=== PATIENT | male | born 1995 | race Two or more races ===

== ENCOUNTER 2024-01-26 22:47 | Emergency (ER) | payer BC, SELFPAY ==
[2024-01-26 22:48] VITALS: BP 147/100
--- NOTE | 2024-01-27 00:41 | ED.GENMED ---
History of Present Illness
<LILO Kenyon (Lenka) - Last Filed: 01/27/24 01:02>
General
Chief Complaint: Allergic Reaction
Source: patient
Exam Limitations: none
Time Seen by Provider: 01/27/24 00:26
Nursing documentation reviewed up to this point in time: agreed with
History of Present Illness
History of Present Illness:
Pt is a 28 yo male with no PMHx who presents to the ED with concerns over R neck swelling x 1d after being stung by a bee x 1.5 days ago. (01/24) around 1700 pt's brother was mowing the lawn and ran over a bees nest, pt was nearby and got
stung on the central margin of his R upper eyelid and his R lateral wrist. He reports immediate itching and swelling to both areas. He took no medication, only applied ice intermittently with temporary relief. He presents with mild periorbital edema
and erythema, worse on the upper eyelid. The puncture is visible. Pt denies having to take any stingers out. No pain with eye movement, no changes in vision. Monday (01/25) morning he awoke with R neck swelling. The swelling has not worsened or
improved. He notes sensation of 'neck tightness', but denies difficulty breathing, shortness of breath, difficulty swallowing, chest tightness, or pain with movement. He took Benadryl at 1600 this afternoon (01/25) with no relief.
He has been stung by bees before, has never had a reaction like this.
[employer], NKFA, NKDA. No history of anaphylaxis.
Does not take any daily medications.
Past History
<LILO Kenyon (Lenka) - Last Filed: 01/27/24 01:02>
Past History
ED Past Medical History: None
ED Past Surgical History: None
Social History
Tobacco: Non-smoker
Alcohol: None
Phy Exam
<LILO Kenyon (Lenka) - Last Filed: 01/27/24 01:02>
General Physical Exam
General Presentation: well appearing and no apparent distress (pt resting comfortably in bed, no respiratory distress)
General age: appears stated age
General Skin: warm and dry
General Habitus: normal
General Mental: alert
General Hydration: appears well hydrated
ENT Exam
ENT Exam: EOMI, pharynx normal, neck supple, lymphnodes (non-palpable, non-tender) and swallowing well
Eye Exam
Eye Exam: PERRL, EOMI (no pain with EOM) and other (R conjunctiva injected, primarily in upper outer and lower outer quadrant of eye)
Eyelid Exam: red and inflamed: Right
Pulmonary Exam
Pulmonary Exam: no respiratory distress, chest non tender, no rhonchi and no cough
Neurological Exam
Neurological Exam: alert, oriented x3 and speech normal
Skin Exam
Skin Exam: erythema (upper R eyelid, minimal)
Course
<LILO Kenyon (Lenka) - Last Filed: 01/27/24 01:02>
Orders/Labs/Results
Orders:
Orders
01/27/24 01:08
Prednisone [Deltasone] 50 mg PO NOW STA
01/27/24 01:08
Mometasone [Elocon 0.1% Cream] See Dose Instructions TOPICAL NOW STA
Vital Signs
Initial and Last Documented VS:
Initial Vital Signs
Temp Pulse Resp BP Pulse Ox
98.3 F 88 18 147/100 98
01/26/24 22:48 01/26/24 22:48 01/26/24 22:48 01/26/24 22:48 01/26/24 22:48
Last Documented Vital Signs
Temp Pulse Resp BP Pulse Ox
98.3 F 88 18 147/100 98
01/26/24 22:48 01/26/24 22:48 01/26/24 22:48 01/26/24 22:48 01/26/24 22:48
<Agueda Clark DO - Last Filed: 01/27/24 01:24>
Orders/Labs/Results
Orders:
Orders
01/27/24 01:08
Prednisone [Deltasone] 50 mg PO NOW STA
01/27/24 01:08
Mometasone [Elocon 0.1% Cream] See Dose Instructions TOPICAL NOW STA
Vital Signs
Initial and Last Documented VS:
Initial Vital Signs
Temp Pulse Resp BP Pulse Ox
98.3 F 88 18 147/100 98
01/26/24 22:48 01/26/24 22:48 01/26/24 22:48 01/26/24 22:48 01/26/24 22:48
Last Documented Vital Signs
Temp Pulse Resp BP Pulse Ox
98.3 F 88 18 147/100 98
01/26/24 22:48 01/26/24 22:48 01/26/24 22:48 01/26/24 22:48 01/26/24 22:48
<LILO Kenyon (Lenka) - Last Filed: 01/27/24 01:02>
MDM/Problems Addressed
Differential Diagnosis Includes:
DDx: local reaction from bee venom vs preseptal cellulitis vs anaphylaxis
Pt resting comfortable in bed, no respiratory distress. Mild erythema and edema noted to R eyelid with some conjunctival injection. Without pain with EOM, and EOM intact. No pain with neck movement, no obvious edema to R lateral neck. Likely a
local reaction from bee venom. Will treat with antihistamines
<LILO Kenyon (Lenka) - Last Filed: 01/27/24 01:02>
*Critical Care Note
Total Time (30-74mins, 75-104mins- exclusive of procedures): Not Applicable
<Agueda Clark DO - Last Filed: 01/27/24 01:24>
*Pulse Oximetry
Patient hypoxic: no
ED Attending Note
<Marialuisa Ferrari (Lenka)ST [email or web address] - Last Filed: 01/27/24 01:02>
-
Portions of this chart may have been created with voice recognition software.� Occasional wrong word or��sound alike� substitutions may have occurred due to the inherent limitations of voice recognition software.
<Agueda Clark DO - Last Filed: 01/27/24 01:24>
ED Attending Note
Patient seen and examined by attending physician: Yes
I performed the substantive portion of visit, reviewed & personally made and approve the management plan that is documented in note by myself or MAL.: Yes
ED Attending Note:
This is a 28-year-old gentleman with no significant past medical history who was stung by a bee 1 and half days ago to his right dorsal lateral wrist as well as right upper eyelid. He admits to mild to moderate local swelling of his right upper
eyelid and right dorsal wrist with mild local itch but no generalized itching nor hives nor generalized rash, no sore throat nor swelling no difficulty swallowing. Earlier today he noticed some focal pain right lateral neck at the angle of his jaw
and his girlfriend was concerned for potential allergic reaction. He denies dental pain/no pain with chewing. No fever no chills.
He took Benadryl 50 mg around 4 PM without improvement. He has had no vision difficulty, no eye pain, no tearing. No headache. No fever nor chills.
He takes no medicines on a daily basis.
GENERAL: 28-year-old overweight male appears his stated age, bright and alert, pleasant, appears in no acute distress.
EYE: There is mild swelling of right upper eyelid with very minimal focal erythema but no periorbital erythema nor edema. Conjunctiva and sclera are clear. Extraocular muscles intact. There is no facial tenderness nor facial soft tissue swelling
nor erythema. Pupils equal and reactive. anicteric
NECK: Supple, no soft tissue swelling nor erythema nor rash, no meningismus. There is mild focal tenderness right parotid gland without appreciable swelling/inflammation of the parotid gland. Palpation in this area exactly reproduces patient's
pain complaint. There is no tenderness to the mandible, no TMJ tenderness and full mandible range of motion without difficulty nor pain. There is no dental tenderness. No evidence of dental caries nor gingival erythema.
ENT: posterior pharynx is clear, oral mucosa is moist. TM clear b/l, nares patent.
CARDIAC: Regular rate and rhythm. no murmur.
LUNGS: Clear breath sounds bilaterally, no acute respiratory distress, no wheezes/rales/rhonchi
ABDOMEN: Soft, nondistended, without focal tenderness
NEUROLOGICAL: Alert and oriented x3, no focal neuro deficits. Gait is correa and steady.
SKIN: Warm and dry, normal color, skin intact. There is mild focal soft tissue swelling with minimal erythema right proximal dorsal lateral wrist. Full range of motion of wrist. No palpable heat, no lymphangitis.
MUSCULOSKELETAL: No C/C/E. peripheral pulses are full and equal b/l. No joint tenderness.
PSYCH: Normal and appropriate interaction.
Patient presents with local reaction to hymenoptera sting to the right upper eyelid, right dorsal lateral wrist.
Admits that swelling has improved but has not resolved.
He is noted to have mild tenderness at the right parotid gland but no appreciable parotid inflammation/swelling. I suspect an element of reactive adenitis but as patient is afebrile, no significant parotid swelling, no erythema, nothing to suggest
infectious process. Nothing to suggest a dental infection.
Nothing in history nor exam to suggest allergic reaction.
Will treat local bee sting inflammation with a short course of prednisone. Recommend continuing Benadryl for as needed itch and will add a short course of topical steroid cream.
Discharge Plan
Departure
Patient Disposition: Home (Routine Discharge)
Date of Disposition: 01/27/24
Time of Disposition: 01:21
Patient with high blood pressure during this ER visit?: Yes
Discharge Problem:
Local reaction to hymenoptera sting
Instructions: Insect Bites and Stings ED, BLOOD PRESSURE
Prescriptions:
New
prednisone 50 mg tablet
50 mg PO DAILY Qty: 5 0RF
mometasone 0.1 % cream
1 applic topical DAILY PRN (Reason: itching, swelling) Qty: 15 0RF
No Action
diclofenac potassium 50 MG tablet
50 mg PO BID Qty: 20 0RF
metaxalone [Skelaxin] 800 MG tablet
800 mg PO BID PRN (Reason: spasm) Qty: 14 0RF
Referrals:
Francis Montemayor MD [Family Provider] - Call in 1-3 days for appt
Interventions
Interventions:
*Risk Screen - Suicide Last Done: 01/26/24 22:48
*General Assessment Last Done: 01/26/24 22:48
*Neglect/Abuse Screening Last Done: 01/26/24 22:48
Discharge Date and Time
Print Language: PRYDEINIG
[2024-01-27] MEDS: DELTASONE 50 MG PO (01:18)
[2024-01-27 01:36] VITALS: BP 131/77
== END 2024-01-27 01:40 | disposition home or self-care (01) ==
LOC: EMR 22:47
PROVIDERS: EMERGENCY PHYSICIAN Emergency Medicine; FAMILY PHYSICIAN Internal Medicine
DX: T63.441A Toxic effect of venom of bees, accidental (unintentional), initial encounter (principal); R03.0 Elevated blood-pressure reading, without diagnosis of hypertension
CPT/HCPCS: 99283

== ENCOUNTER 2024-05-23 19:33 | Emergency (ER) | payer BC, SELFPAY ==
[2024-05-23 19:36] VITALS: BP 136/86
[2024-05-23] MEDS: DELTASONE 50 MG PO (19:52)
[2024-05-23] MEDS: PEPCID 20 MG PO (19:52)
[2024-05-23] MEDS: BENADRYL 50 MG PO (19:52)
--- NOTE | 2024-05-23 19:57 | ED.GENMED ---
History of Present Illness
General
Chief Complaint: Allergic Reaction
Time Seen by Provider: 05/23/24 19:57
History of Present Illness
History of Present Illness:
TIME OF INITIAL ENCOUNTER: 8 PM
HPI: Earlier today, the patient was at urgent care due to high fevers of 104 degree temperature. He has some trouble breathing. He is a smoker. He reports having a chest x-ray that was reportedly negative for pneumonia. However they did place
him on antibiotics 'for bronchitis'. They placed him on Augmentin. His first dose was around 1 PM. Later in the day, he had rather diffuse itchiness and diffuse rash.
EXAM:
GENERAL: Well appearing in no distress
HEENT: Moist oral mucosa
CARDIOVASCULAR: No murmurs, normal heart rate, regular rhythm, No chest wall tenderness
PULMONARY: No respiratory distress, breath sounds are slightly decreased with occasional wheeze, no rales
ABDOMEN: Soft with no peritoneal signs, no tenderness
NEUROLOGIC: Excellent strength all extremities, no coordination deficits
PSYCHIATRIC: Appropriate mental status, normal insight and judgement
EXTREMITIES: Nontender, no edema, moves all extremities equally
SKIN: Extensive erythema noted
NUMBER AND COMPLEXITY OF PROBLEMS ADDRESSED AT THE ENCOUNTER
� Chronic conditions affecting care: Has had LASEK in the past, is a smoker
� Acute Exacerbation and/or Progression of Chronic Illness: This is an acute problem
� Differential Diagnosis includes: Allergic reaction, medication side effect, bronchitis, pneumonia, reactive airway disease
AMOUNT AND/OR COMPLEXITY OF DATA TO BE REVIEWED AND ANALYZED
� I performed an independent evaluation of and my interpretation is:
EKG:
CT:
X-rays:
Laboratory Studies:
Other:
� Review of other/old records: The patient was treated here in January with a hymenoptera sting reaction
� Clinical information was obtained by an independent historian: I spoke to family at bedside
� Prescriptions/Medications Considered but not given:
� Further testing considered but not performed: Considered x-ray however the patient states he just had a chest x-ray earlier today that was reportedly clear; he states that COVID testing was negative earlier today
RISK OF COMPLICATIONS AND/OR MORBIDITY OR MORTALITY OF PATIENT MANAGEMENT
� Social determinants of health affecting care: Lives at home
� Discussion with other providers:
� Escalation of care including admission/observation vs risk of discharge considered: Prior to me evaluating the patient, the patient was already given Benadryl, Pepcid, and prednisone in triage
ANY OTHER UPDATES:
The patient did have some wheeze earlier and was given a DuoNeb
9:30 PM on reassessment, the patient feels significant improved. However he does feel some chills and is more tachycardic�temperature now elevated at 100.4 Fahrenheit. Tylenol would be given prior to discharge. Will continue steroids for
treatment of both allergic reaction and viral bronchitis with reactive airway disease. I have also sent a prescription for an inhaler as he did respond to the DuoNeb.
Past History
Past History
ED Past Medical History: None
ED Past Surgical History: None
Social History
Tobacco: Non-smoker
Alcohol: None
Phy Exam
Physical Exam
Physical Exam:
See HPI
Course
Orders/Labs/Results
Orders:
Orders
05/23/24 19:48
Diphenhydramine [Benadryl] 50 mg .ROUTE .STK-MED ONE
Famotidine [Pepcid] 20 mg .ROUTE .STK-MED ONE
Prednisone [Deltasone] 50 mg .ROUTE .STK-MED ONE
05/23/24 19:51
Diphenhydramine [Benadryl] 50 mg PO NOW STA
05/23/24 19:52
Famotidine [Pepcid] 20 mg PO NOW STA
Prednisone [Deltasone] 50 mg PO NOW STA
05/23/24 20:10
Ipratropium/Albuterol Sulfate [Duoneb] 3 ml INH R NOW ONE
05/23/24 20:30
EPINEPHrine PF [Adrenalin] 1 mg .ROUTE .STK-MED ONE
05/23/24 21:29
Acetaminophen [Tylenol] 1,000 mg PO NOW STA
Vital Signs
Initial and Last Documented VS:
Initial Vital Signs
Temp Pulse Resp BP Pulse Ox
37.0 C 98 18 136/86 98
05/23/24 19:36 05/23/24 19:36 05/23/24 19:36 05/23/24 19:36 05/23/24 19:36
Last Documented Vital Signs
Temp Pulse Resp BP Pulse Ox
37.0 C 113 20 135/73 99
05/23/24 19:36 05/23/24 20:45 05/23/24 19:59 05/23/24 20:18 05/23/24 20:45
*Critical Care Note
Total Time (30-74mins, 75-104mins- exclusive of procedures): Not Applicable
ED Attending Note
-
Portions of this chart may have been created with voice recognition software.� Occasional wrong word or��sound alike� substitutions may have occurred due to the inherent limitations of voice recognition software.
Discharge Plan
Departure
Patient Disposition: Home (Routine Discharge)
Date of Disposition: 05/23/24
Time of Disposition: 21:31
Patient with high blood pressure during this ER visit?: Yes
Discharge Problem:
Acute viral syndrome, Allergic reaction
Prescriptions:
New
prednisone 50 mg tablet
50 mg PO DAILY Qty: 4 0RF
albuterol sulfate 90 mcg/actuation HFA aerosol inhaler
2 puff inhalation Q4H PRN (Reason: shortness of breath or wheezing) Qty: 8.5 0RF
No Action
diclofenac potassium 50 MG tablet
50 mg PO BID Qty: 20 0RF
metaxalone [Skelaxin] 800 MG tablet
800 mg PO BID PRN (Reason: spasm) Qty: 14 0RF
prednisone 50 mg tablet
50 mg PO DAILY Qty: 5 0RF
mometasone 0.1 % cream
1 applic topical DAILY PRN (Reason: itching, swelling) Qty: 15 0RF
Referrals:
Francis Montemayor MD [Family Provider] -
Activity Restrictions/Additional Instructions:
You are given Benadryl, Pepcid, as well as prednisone to treat the allergic reaction. I recommend not taking any more of the amoxicillin/clavulanic acid (Augmentin). I recommend against taking penicillins in the future as you likely are allergic
to penicillins. I suspect that your initial symptoms are more related to bronchitis which is usually viral as opposed to bacterial. Prednisone can also be used to treat bronchitis especially since he had some wheeze. Next dose of prednisone
tomorrow. I am also sending a prescription for an inhaler to your pharmacy. Usually I would recommend taking ibuprofen/Motrin for fevers however while on prednisone it would be safer to just take Tylenol. You can take 2 Exer strength Tylenol 4
times per day.
Interventions
Interventions:
*Risk Screen - Suicide Last Done: 05/23/24 19:36
*General Assessment Last Done: 05/23/24 19:39
*Neglect/Abuse Screening Last Done: 05/23/24 19:36
ED- Fall Risk Assessment Last Done: 05/23/24 20:05
ED- Cardiac Assessment Last Done: 05/23/24 20:05
ED- Pulmonary Assessment Last Done: 05/23/24 20:05
ED-Skin Assessment Last Done: 05/23/24 20:05
Discharge Date and Time
Print Language: MARTINIQUAIS
[2024-05-23 19:59] VITALS: BP 133/83
[2024-05-23 20:04] VITALS: BMI 40.1
[2024-05-23 20:18] VITALS: BP 135/73
[2024-05-23] MEDS: DUONEB 3 ML INH (20:20)
[2024-05-23 21:00] VITALS: BP 136/86
[2024-05-23] MEDS: TYLENOL 1000 MG PO (21:37)
[2024-05-23 21:48] VITALS: BP 136/77
== END 2024-05-23 22:02 | disposition home or self-care (01) ==
LOC: EMR 19:33
PROVIDERS: EMERGENCY PHYSICIAN Emergency Medicine; FAMILY PHYSICIAN Internal Medicine
DX: J20.8 Acute bronchitis due to other specified organisms (principal); B97.89 Other viral agents as the cause of diseases classified elsewhere; J45.909 Unspecified asthma, uncomplicated; L27.0 Generalized skin eruption due to drugs and medicaments taken internally; T36.0X5A Adverse effect of penicillins, initial encounter; T36.1X5A Adverse effect of cephalosporins and other beta-lactam antibiotics, initial encounter; F17.200 Nicotine dependence, unspecified, uncomplicated
CPT/HCPCS: 94640; 99283

== ENCOUNTER 2024-05-25 16:50 | Emergency (ER) | payer BC, SELFPAY ==
[2024-05-25 16:51] VITALS: BP 150/92
[2024-05-25 18:43] VITALS: BP 117/69
[2024-05-25 19:00] VITALS: BP 111/66
[2024-05-25] MEDS: TORADOL 30 MG IV (19:57)
--- NOTE | 2024-05-25 20:01 | ED.GENMED ---
History of Present Illness
General
Chief Complaint: Allergic Reaction
Source: patient, spouse and family
Exam Limitations: none
Time Seen by Provider: 05/25/24 19:25
Nursing documentation reviewed up to this point in time: agreed with
History of Present Illness
History of Present Illness:
28-year-old male presenting to the emergency department today with concerns of ongoing redness and swelling over the past 3 days. Claims that he was diagnosed with upper respiratory infection was given Augmentin for potential bronchitis within the
next 24 hours he noticed redness and swelling to his hands and his upper extremities as well as chest wall. He came to the ER and was felt to have a potential allergic reaction. He was written for prednisone and Benadryl he has been taking this as
prescribed without significant improvement. Denies any specific itchiness now mildly painful denies any trouble swallowing or breathing no abdominal pain no nausea or vomiting.
Past History
Past History
ED Past Medical History: None
ED Past Surgical History: None
Social History
Tobacco: Non-smoker
Alcohol: None
Review of Systems
Review of Systems
Allergies reviewed?: Yes
All Other Systems: ROS reviewed and negative except as documented in HPI and ROS
Phy Exam
Physical Exam
Physical Exam:
GENERAL: Alert , in no apparent distress
EYE: pupils equal and reactive
NECK: Supple, no significant adenopathy.
ENT: o/p clr, mmm.
CARDIAC: Regular rate and rhythm .
LUNGS: Clear breath sounds bilaterally, no acute respiratory distress, no wheezes/rales/rhonchi
ABDOMEN: Soft, without focal tenderness, no r/g, no cvat
NEUROLOGICAL: Alert and oriented, no focal neuro deficits
SKIN: Scattered maculopapular rash throughout the hands upper extremities chest wall and abdomen.
MUSCULOSKELETAL: No edema, well perfused.
PSYCH: Normal and appropriate interaction.
Course
Orders/Labs/Results
Orders:
Orders
05/25/24 19:54
Ketorolac [Toradol] 30 mg IV NOW STA
05/25/24 19:56
Ketorolac [Toradol] 30 mg .ROUTE .STK-MED ONE
05/25/24 19:58
CBC/With Diff [Complete Blood Count/With Diff] Urgent
CMP [Comprehensive Metabolic Panel] Urgent
Abnormal Lab Results
05/25/24
19:58
Lymphocytes % 20.2 L %
(20.5-51.1)
BUN 23 H mg/dl
(9-20)
Glucose 110 H mg/dl
(70-99)
05/25/24 19:58
05/25/24 19:58
Vital Signs
Initial and Last Documented VS:
Initial Vital Signs
Temp Pulse Resp BP Pulse Ox
97.9 F 88 16 150/92 99
05/25/24 16:51 05/25/24 16:51 05/25/24 16:51 05/25/24 16:51 05/25/24 16:51
Last Documented Vital Signs
Temp Pulse Resp BP Pulse Ox
97.9 F 87 16 111/66 99
05/25/24 16:51 05/25/24 19:16 05/25/24 16:51 05/25/24 19:00 05/25/24 16:51
MDM/Problems Addressed
MDM/Problems Addressed:
28-year-old male presenting to the emergency department today with concerns of ongoing rash over the past 3 days. Was here and presumed to have a potential allergic reaction was given prednisone as well as Benadryl with no relief. Here he is in no
distress vital signs normal patient does have the ongoing rash no mucous membrane involvement no tenderness to palpation no focal consolidation appears to be maculopapular does not appear to be consistent with wheals not itchy. Seems to be less
likely consistent with a large allergic reaction may be inflammatory. Does not seem to be consistent with any life-threatening rashes including Yepez-Neil syndrome. Could be secondary to patient's recent viral infection. Patient with
significant improvement of symptoms after receiving Toradol stable for outpatient management return precautions given.
*Critical Care Note
Total Time (30-74mins, 75-104mins- exclusive of procedures): Not Applicable
ED Attending Note
-
Portions of this chart may have been created with voice recognition software.� Occasional wrong word or��sound alike� substitutions may have occurred due to the inherent limitations of voice recognition software.
Discharge Plan
Departure
Patient Disposition: Home (Routine Discharge)
Date of Disposition: 05/25/24
Time of Disposition: 21:45
Patient with high blood pressure during this ER visit?: No
Condition: Good
Covid-19: Not Applicable
Discharge Problem:
Rash
Instructions: Adverse Drug Reactions, Adult (DC)
Prescriptions:
No Action
diclofenac potassium 50 MG tablet
50 mg PO BID Qty: 20 0RF
metaxalone [Skelaxin] 800 MG tablet
800 mg PO BID PRN (Reason: spasm) Qty: 14 0RF
prednisone 50 mg tablet
50 mg PO DAILY Qty: 5 0RF
mometasone 0.1 % cream
1 applic topical DAILY PRN (Reason: itching, swelling) Qty: 15 0RF
prednisone 50 mg tablet
50 mg PO DAILY Qty: 4 0RF
albuterol sulfate 90 mcg/actuation HFA aerosol inhaler
2 puff inhalation Q4H PRN (Reason: shortness of breath or wheezing) Qty: 8.5 0RF
Referrals:
Francis Montemayor MD [Family Provider] -
Activity Restrictions/Additional Instructions:
You came to department today with concerns of ongoing rash. This could be secondary to the recent virus. Please take ibuprofen and your prescribed medications over the next few days as symptoms will hopefully be improving. Please follow closely
with a primary care doctor within 1 week. Return to the emergency department any worsening, new or concerning symptoms.
Interventions
Interventions:
*Risk Screen - Suicide Last Done: 05/25/24 16:51
*General Assessment Last Done: 05/25/24 16:51
*Neglect/Abuse Screening Last Done: 05/25/24 16:51
*ED COVID-19 Vaccine History Last Done: 05/25/24 16:51
*Nursing Disposition Last Done: 05/25/24 21:52
ED- Cardiac Assessment Last Done: 05/25/24 19:40
ED- Pulmonary Assessment Last Done: 05/25/24 19:40
ED-Skin Assessment Last Done: 05/25/24 19:40
Discharge Date and Time
Discharge Date/Time: 05/25/24 21:52
Print Language: [place]
[2024-05-25 20:05] LABS: % Basophils 0.1 % (0-2); % Eosinophils 3.8 % (0-6); % Immature Granulocytes 0.3 % (0-0.5); % Lymphocytes 20.2 % (20.5-51.1); % Monocytes 5.6 % (1.7-9.3); Absolute Eosinophils 0.3 10^3/uL (0-0.7); Absolute Lymphocytes 1.4 10^3/uL (1.2-3.4); Absolute Monocytes 0.4 10^3/uL (0.1-0.6); Absolute Neutrophils 4.8 10^3/uL (1.4-6.5); Hematocrit 45.2 % (39.0-52.0); Hemoglobin 15.2 g/dL (13.0-18.0); Mean Corp Hgb Conc. 33.6 g/dL (33.0-37.0); Mean Corpuscular Hgb 30.5 pg (27.0-31.0); Mean Corpuscular Volume 90.8 fL (80.0-94.0); Mean Platelet Volume 9.3 fL (7.4-10.4); Nucleated Red Blood Cells % 0 % (-); Platelet Count 232 10^3/uL (130-400); Red Blood Cell Count 4.98 10^6/uL (4.70-6.10); Red Cell Dist. Width 12.1 % (11.5-14.5); White Blood Cell Count 6.8 10^3/uL (4.8-10.8)
[2024-05-25 20:22] LABS: ALT (SGPT) 33 U/L (0-50); AST (SGOT) 24 U/L (17-59); Albumin 4.2 g/dl (3.5-5.0); Alkaline Phosphatase 44 U/L (38-126); Blood Urea Nitrogen 23 mg/dl (9-20); Calcium 8.7 mg/dl (8.4-10.2); Carbon Dioxide 27 mmol/L (22-30); Chloride 100 mmol/L (98-107); Glucose 110 mg/dl (70-99); Potassium 3.8 mmol/L (3.5-5.1); Sodium 136 mmol/L (135-145); Total Bilirubin 0.3 mg/dl (0.2-1.3); Total Protein 6.7 g/dl (6.3-8.2); eGFR > 60.00
== END 2024-05-25 21:52 | disposition home or self-care (01) ==
LOC: EMR 16:50
PROVIDERS: Physician Assistant; EMERGENCY PHYSICIAN Emergency Medicine; FAMILY PHYSICIAN Internal Medicine
DX: R21 Rash and other nonspecific skin eruption (principal)
CPT/HCPCS: 96374; 99284; 80053; 85025